=== PATIENT | male | born 1970 | race Hispanic/Latino ===

== ENCOUNTER 2019-02-11 20:09 | Emergency (ER) | payer SELFPAY ==
[~2019-02-11] VITALS: Ht 165.1 cm; Wt 80.0 kg
[~2019-02-11 20:09] MED LIST: FORTAMET1000 MG PO; GLYBURIDE MICRON3 MG PO; ZESTRIL10 M1 PO
[2019-02-11 21:08] LABS: HEMATOCRIT 39.5 % (39.0-50.0); HEMOGLOBIN 13.1 g/dl (14.0-18.0); IMMATURE GRANULOCYTES 0.3 % (0.0-5.0); MEAN CELL VOLUME 103.4 fL CALC (80.0-100.0); MEAN CORPUSCULAR HGB 34.3 pG CALC (26.0-32.0); MEAN CORPUSCULAR HGB CONC 33.2 g/L CALC (32.0-36.0); PLATELET COUNT 214 thou/uL (130-400); RED BLOOD COUNT 3.82 mill/uL (4.70-6.10); RED CELL DISTRI WIDTH 17.6 % (11.5-15.5)
[2019-02-11 21:23] LABS: MANUAL DIFFERENTIAL YES
[2019-02-11 21:44] LABS: INTERNATIONAL NORMALIZED RATIO 1.3 RATIO (0.7-1.3); PROTHROMBIN TIME 13.8 SECONDS (9.0-12.5)
[2019-02-11 21:48] LABS: AMYLASE 93 u/l (30-110); ANION GAP 13 (6-22 (CALC)); BUN 7 mg/dL (9-20); BUN/CREATININE RATIO 12 (12-20 (CALC)); CARBON DIOXIDE 25 mmol/l (22-30); CHLORIDE 106 mmol/l (95-108); CREATININE 0.6 mg/dL (0.7-1.3); ETHYL ALCOHOL 0 mg/dl (0-30); GFR > 60 ML/MIN (>=60 (CALC)); GFR FOR AFR.AMER. > 60 ML/MIN (>=60 (CALC)); LIPASE 380 u/l (23-300); POTASSIUM 4.2 mmol/l (3.5-5.1); SGOT/AST 83 u/l (17-59); SODIUM 140 mmol/l (137-146); TOTAL PROTEIN 7.2 g/dL (6.3-8.2)
[2019-02-11 21:55] LABS: ALBUMIN 2.8 g/dL (3.2-5.0); ALKALINE PHOSPHATASE 160 u/l (38-126); BILIRUBIN, TOTAL 2.7 mg/dL (0.0-1.4)
[2019-02-11 22:00] LABS: MYOGLOBIN 27 ng/mL (0 - 121)
[2019-02-11 22:26] LABS: URINE BLOOD DIPSTICK NEGATIVE (NEGATIVE); URINE COLOR YELLOW; URINE GLUCOSE - DIPSTICK 100 mg/dL (NEGATIVE); URINE KETONE TRACE mg/dL (NEGATIVE); URINE LEUK ESTERASE NEGATIVE (NEGATIVE); URINE NITRITE - DIPSTICK NEGATIVE (Negative); URINE PROTEIN - DIPSTICK NEGATIVE (NEG-TRACE); URINE SPECIFIC GRAVITY 1.025; URINE UROBILINOGEN - DIPSTICK >=8.0 E.U./dL (0.2)
[2019-02-11 22:32] LABS: URINE BILIRUBIN - DIPSTICK SMALL (NEGATIVE)
[2019-02-11 22:36] LABS: COCAINE NEGATIVE (NEGATIVE); METHADONE NEGATIVE (NEGATIVE); TETRAHYDROCANNABIONOL NEGATIVE (NEGATIVE)
[2019-02-11 22:37] LABS: BARBITURATES NEGATIVE (NEGATIVE); OXCYCODONE NEGATIVE (NEGATIVE); TRICYLIC ANTIDEPRESSANTS NEGATIVE (NEGATIVE)
[2019-02-12 00:03] VITALS: BP 140/79
== END 2019-02-12 00:14 | disposition home or self-care (01) | DRG 434 ==
LOC: ED 20:09
PROVIDERS: Emergency Medicine
DX: K70.31 Alcoholic cirrhosis of liver with ascites (principal); R41.82 Altered mental status, unspecified; R53.1 Weakness; R50.9 Fever, unspecified

== ENCOUNTER 2019-02-19 09:23 | Observation (INO) | payer OTHER ==
[~2019-02-19] VITALS: Ht 165.1 cm; Wt 66.0 kg
--- NOTE | 2019-02-19 09:45 | NUR ---
PT AMB TO ROOM WITH CRUTCHES WITH FAMILY
[2019-02-19 10:47] LABS: HEMOGLOBIN 13.3 g/dl (14.0-18.0); IMMATURE GRANULOCYTES 0.3 % (0.0-5.0); MEAN CELL VOLUME 106.5 fL CALC (80.0-100.0); MEAN CORPUSCULAR HGB 34.5 pG CALC (26.0-32.0); MEAN CORPUSCULAR HGB CONC 32.4 g/L CALC (32.0-36.0); NEUT# 4.92 thou/uL (1.82-7.42); RED BLOOD COUNT 3.85 mill/uL (4.70-6.10); RED CELL DISTRI WIDTH 15.5 % (11.5-15.5)
--- NOTE | 2019-02-19 11:02 | NUR ---
PT NOW WITH IV ESTABLISHED, BLOOD DRAWN, SEEN BY EDNi. VICKY.
[2019-02-19 11:03] LABS: ALKALINE PHOSPHATASE 115 u/l (38-126); ANION GAP 11 (6-22 (CALC)); BUN 9 mg/dL (9-20); BUN/CREATININE RATIO 18 (12-20 (CALC)); CARBON DIOXIDE 26 mmol/l (22-30); CHLORIDE 107 mmol/l (95-108); CREATININE 0.5 mg/dL (0.7-1.3); GFR > 60 ML/MIN (>=60 (CALC)); GFR FOR AFR.AMER. > 60 ML/MIN (>=60 (CALC)); LIPASE 287 u/l (23-300); SGOT/AST 63 u/l (17-59); SODIUM 138 mmol/l (137-146); TOTAL PROTEIN 7.5 g/dL (6.3-8.2)
[2019-02-19 11:16] LABS: URINE BILIRUBIN - DIPSTICK NEGATIVE (NEGATIVE); URINE BLOOD DIPSTICK NEGATIVE (NEGATIVE); URINE COLOR YELLOW; URINE GLUCOSE - DIPSTICK NEGATIVE (NEGATIVE); URINE KETONE NEGATIVE (NEGATIVE); URINE LEUK ESTERASE NEGATIVE (NEGATIVE); URINE NITRITE - DIPSTICK NEGATIVE (Negative); URINE PH 5.5 (4.5-8.0); URINE PROTEIN - DIPSTICK NEGATIVE (NEG-TRACE)
--- NOTE | 2019-02-19 13:16 | NUR ---
PT TO PROCEDURES FOR PARACENTESIS. FAMILY REMAINS IN ROOM.
--- NOTE | 2019-02-19 13:47 | NUR ---
PT RETURNS FROM PARACENTESIS, 2850 OUT.
--- NOTE | 2019-02-19 14:40 | NUR ---
DIET ORDER PLACED, AWAITING MEAL TO ARRIVE FROM [place].
[2019-02-19] MEDS ORDERED: BLOOD PRESSURE MED (14:43)
[2019-02-19] MEDS ORDERED: DIABETES MEDICINE (14:44)
[2019-02-19] MEDS ORDERED: [UNRECOGNIZED DRUG - OTHER] (14:44)
--- NOTE | 2019-02-19 15:19 | NUR ---
REPORT CALLED TO [facility], TO FLOOR SOON.
[2019-02-19 15:25] VITALS: BP 110/63
--- NOTE | 2019-02-19 15:29 | NUR ---
PT TAKE TO ROOM 274 WITHOUT INICIDENT.
--- NOTE | 2019-02-19 16:30 | NUR ---
PT ARRIVED TO MED/SURG ROOM 274 VIA STRETCHER IN STABLE CONDITION ACCOMPANIED BY GERALD KOLB;PT AMBULATED WITH A STEADY GAIT TO STANDING SCALE AND BEDSIDE;WT AND VS OBTAINED BY TAWNY GRIFFIN;PT A&O X3, EQUATORIAL GUINEAN SPEAKING ONLY. TRANSLATION PROVIDED BY GERALD IBANEZ;PT DENIES ANY CURRENT PAIN OR DISCOMFORTS,PAIN SCALE AND REPORTING EDUCATED;RESPIRATIONS EVEN AND UNLABORED ON RA,CLEAR LUNG SOUNDS;ABDOMEN SOFT ON PALPATION AND ACTIVE IN ALL 4 QUADRANTS,LAST BM 02/19/19;STRONG PEDAL PULSES;#20G TO LAC FLUSHED AND PATENT,SITE APPEARS HEALTHY;400CC OF CLEAR/YELLOW URINE EMPTIED FROM URINAL;PT DENIES ANY ADDITIONAL NEEDS AT THIS TIME AND IS ENCOURAGED TO CALL FOR ASSISTANCE IF NEEDED;CALL LIGHT IN REACH;WILL CONTINUE TO MONITOR
--- NOTE | 2019-02-19 19:19 | NUR ---
PATIENT RESTING IN BED WITH MULTIPLE FAMILY MEMBERS AT BEDSIDE. PATIENT IS MOSTLY GERMAN SPEAKING. DAUGHTER USED FOR TRANLATION. PATIENT DENIES ANY PAIN OR DISCOMFORT AT THIS TIME. PATIENT POST-PARACENTESIS FROM TODAY. SMALL DRESSING TO RIGHT ABD CDI AT THIS TIME. ABD IS SOFT WITH ACTIVE BS. LAST BM WAS TODAY. DENIES ANY DIFFICULTY WITH URINATION. LUNGS ARE CLEAR. HR IS REGULAR. NO PERIPHERAL EDEMA NOTED WITH PULSES PALPABLE. SAFETY PRECAUTIONS REINFORCED. CALL LIGHT IN REACH. WILL CONT TO MONITOR.
[2019-02-19 19:54] VITALS: BP 100/61
[2019-02-19 23:55] VITALS: BP 86/55
--- NOTE | 2019-02-20 00:19 | NUR ---
PATIENT RESTING IN BED-AWAKE WITH NO COMPLAINTS AT THIS TIME. ZOSYN HUNG AND INFUSING VIA LEFT AC SITE. SITE REMAINS HEALTHY AT THIS TIME. CALL LIGHT IN REACH. WILL CONT TO MONITOR.
--- NOTE | 2019-02-20 04:08 | NUR ---
APPEARS SLEEPING AT THIS TIME-EYES CLOSED. RESP ARE EVEN AND UNLABORED. CALL LIGHT IN REACH. WILL CONT TO MONITOR.
[2019-02-20 04:14] VITALS: BP 98/53
[2019-02-20 05:04] LABS: HEMOGLOBIN 12.5 g/dl (14.0-18.0); IMMATURE GRANULOCYTES 0.1 % (0.0-5.0); MEAN CELL VOLUME 103.1 fL CALC (80.0-100.0); MEAN CORPUSCULAR HGB 34.8 pG CALC (26.0-32.0); MEAN CORPUSCULAR HGB CONC 33.8 g/L CALC (32.0-36.0); NEUT# 4.3 thou/uL (1.82-7.42); RED BLOOD COUNT 3.59 mill/uL (4.70-6.10); RED CELL DISTRI WIDTH 14.9 % (11.5-15.5)
[2019-02-20 05:29] LABS: ALBUMIN 2.1 g/dL (3.2-5.0); ALKALINE PHOSPHATASE 84 u/l (38-126); AMYLASE 55 u/l (30-110); ANION GAP 9 (6-22 (CALC)); BILIRUBIN, TOTAL 1.6 mg/dL (0.0-1.4); BUN 9 mg/dL (9-20); BUN/CREATININE RATIO 13 (12-20 (CALC)); CARBON DIOXIDE 25 mmol/l (22-30); CHLORIDE 109 mmol/l (95-108); CREATININE 0.6 mg/dL (0.7-1.3); GFR > 60 ML/MIN (>=60 (CALC)); GFR FOR AFR.AMER. > 60 ML/MIN (>=60 (CALC)); LIPASE 312 u/l (23-300); MAGNESIUM 1.7 mg/dL (1.6-2.3); POTASSIUM 3.9 mmol/l (3.5-5.1); SGOT/AST 44 u/l (17-59); SODIUM 139 mmol/l (137-146); TOTAL PROTEIN 5.7 g/dL (6.3-8.2)
--- NOTE | 2019-02-20 07:05 | NUR ---
PT REPORT RECIEVED FROM GERALD ESTEBAN. PT SLEEPING. NO S/S OF DISTRESS. CALL LIGHT IN REACH. WILL CONTINUE TO MONITOR.
[2019-02-20 08:35] VITALS: BP 97/70
--- NOTE | 2019-02-20 08:35 | NUR ---
PT A/O X3. SPEECH IS CLEAR. RESP EVEN AND UNLABORED. LUNG SOUNDS CLEAR. BOWEL SOUNDS ACTIVE X4. STRONG RADIAL AND PEDAL PULSES. #20 LAC SL. FLUSHED AND PATENT. SITE APPEARS HEALTHY. PT HAS A SMALL SKIN TEAR TO HIS RLE; PT STATES IT CAME FROM HIS BOOTS. PT DENIES ANY PAIN OR NEEDS. POC DISCUSSED; PT VERBALIZES UNDERSTANDING. SAFETY PRECAUTIONS IN PLACE. CALL LIGHT IN REACH. PT AMBULATING IN HALLS AND IN ROOM. WILL CONTINUE TO MONITOR.
--- NOTE | 2019-02-20 10:55 | NUR ---
DR. MILLARD IN TO SEE PT
[2019-02-20 11:08] VITALS: BP 113/73
--- NOTE | 2019-02-20 12:28 | NUR ---
PT AMBULATING IN HALLS. NO C/O PAIN OR NEEDS. WILL CONTINUE TO MONITOR.
[2019-02-20 15:00] VITALS: BP 99/63
--- NOTE | 2019-02-20 15:31 | NUR ---
MIRTA CALLED REGARDING [facility] FOR PT. SHE STATES SHE WILL BE UP TO TALK W/ PT.
--- NOTE | 2019-02-20 15:45 | NUR ---
PT SITTING IN RECLINER. NO C/O PAIN OR NEEDS. CALL LIGHT IN REACH. WILL CONTINUE TO MONITOR.
--- NOTE | 2019-02-20 19:30 | NUR ---
PATIENT RESTING IN BED-AWAKE ALERT AND ORIENTEDX3. [place] SPEAKING ONLY. MULTIPLE VISITORS AT BEDSIDE. PATIENT WITH NO COMPLAINTS AT THIS TIME. SALINE LOCK INTACT TO LEFT AC SITE. SITE IS HEALTHY AT THIS TIME. SAFETY PRECAUTIONS REINFORCED. CALL LIGHT IN REACH. WILL CONT TO MONITOR.
[2019-02-20 19:33] VITALS: BP 110/75
--- NOTE | 2019-02-20 23:36 | NUR ---
PATIENT RESTING IN BED-NO COMPLAINTS AT THIS TIME, IV SITE TO LEFT AC INTACT AND ZOSYN HUNG AND INFUSING ORDERED. PATIENT OFFERED LIBRIUM TO HELP REST BUT PATIENT DECLINED AT THIS TIME. SAFETY PRECAUTIONS REINFORCED. CALL LIGHT IN REACH. WILL CONT TO MONITOR.
--- NOTE | 2019-02-21 00:43 | NUR ---
PATIENT RESTING IN BED-C/O PAIN AT LEFT AC IV SITE-SITE IS RED AND PAINFUL. IV SITE D/C'ED AND NEW IV SITE STARTED TO RIGHT UPPER FOREARM. GOOD BLOOD RETURN. PATIENT CONT TO REFUSE ANY LIBRIUM AT THIS TIME. STATES THAT HE WANTS TO GO HOME IN THE MORNING. CALL LIGHT IN REACH. WILL CONT TO MONITOR.
[2019-02-21 03:56] VITALS: BP 90/56
--- NOTE | 2019-02-21 05:21 | NUR ---
APPEARS SLEEPING AT THIS TIME WITH EYES CLOSED. RESP ARE EVEN AND UNLABORED. CALL LIGHT IN REACH. WILL CONT TO MONITOR.
[2019-02-21 08:44] VITALS: BP 93/69
--- NOTE | 2019-02-21 08:49 | NUR ---
PT AMBULATING THE HALLS; ASSESSMENT COMPLETED; RESP EVEN AND UNLABORED; A/O; #22G RFA, FLUSHED WELL, SITE APPEARS HEALTHY; MEDICATED PER EMAR; C/O OF NO PAIN; SAFETY PRECAUTION REINFORCE;
--- NOTE | 2019-02-21 10:50 | NUR ---
PT SITTING UP IN CHAIR, FAMILIES AT BEDSIDE;
--- NOTE | 2019-02-21 11:32 | NUR ---
DR BAUER AT BEDSIDE TO DISCUSS POC
--- NOTE | 2019-02-21 11:41 | NUR ---
PT SITTING UP IN CHAIR READY TO EAT LUNCH; FAMILIES AT BEDSIDE; STOCK REPAIRER IN ROOM; ZOSYN INFUSING; IV SITE APPEARS HEALTHY.
[2019-02-21] MEDS ORDERED: PROTONIX40 M2 PO (12:26)
[2019-02-21] MEDS ORDERED: CIPROFLOXACN500 MG PO (12:26)
[2019-02-21] MEDS ORDERED: SPIRONOLACT25 MG PO (12:27)
[2019-02-21] MEDS ORDERED: INDERAL10 M1 PO (12:29)
--- NOTE | 2019-02-21 13:08 | NUR ---
Discharge instructions given. Patient verbalizes understanding of same. Discharged in stable condition via Ambulatory to Home with family. All belongings sent with pt. IV REMOVED CATH INTACT; PT REMINDED TO [facility] OFF[facility] MEDICATIONS AT [facility]; VERBALIZE UNDERSTANDING.
== END 2019-02-21 13:22 | disposition home or self-care (01) ==
LOC: ED 09:23 → ED-I 14:25 → ED 14:42 → MS2 14:43
PROVIDERS: Family Medicine; ADMIT Internal Medicine Nephrology; ATTEND Internal Medicine Nephrology
DX: R10.32 Left lower quadrant pain (principal); R10.12 Left upper quadrant pain; K70.31 Alcoholic cirrhosis of liver with ascites; K70.11 Alcoholic hepatitis with ascites; N49.2 Inflammatory disorders of scrotum; K76.6 Portal hypertension; E11.9 Type 2 diabetes mellitus without complications; F32.9 Major depressive disorder, single episode, unspecified; D64.9 Anemia, unspecified; E88.09 Other disorders of plasma-protein metabolism, not elsewhere classified; E46 Unspecified protein-calorie malnutrition; Z68.24 Body mass index [BMI] 24.0-24.9, adult; Z53.20 Procedure and treatment not carried out because of patient's decision for unspecified reasons
CPT/HCPCS: G0378; Q9967

== ENCOUNTER 2019-03-08 09:44 | Emergency (ER) | payer OTHER ==
[~2019-03-08] VITALS: Ht 165.1 cm; Wt 66.0 kg
[~2019-03-08 09:44] MED LIST changes: +BLOOD PRESSURE MED; +CIPROFLOXACN500 MG PO; +DIABETES MEDICINE; +INDERAL10 M1 PO; +PROTONIX40 M2 PO; +SPIRONOLACT25 MG PO; +[UNRECOGNIZED DRUG - OTHER]
[2019-03-08 10:20] LABS: HEMATOCRIT 41.1 % (39.0-50.0); HEMOGLOBIN 13.7 g/dl (14.0-18.0); IMMATURE GRANULOCYTES 0.3 % (0.0-5.0); MEAN CELL VOLUME 100.5 fL CALC (80.0-100.0); MEAN CORPUSCULAR HGB 33.5 pG CALC (26.0-32.0); MEAN CORPUSCULAR HGB CONC 33.3 g/L CALC (32.0-36.0); NEUT# 3.76 thou/uL (1.82-7.42); RED BLOOD COUNT 4.09 mill/uL (4.70-6.10); RED CELL DISTRI WIDTH 13.4 % (11.5-15.5)
[2019-03-08 10:47] LABS: ALKALINE PHOSPHATASE 78 u/l (38-126); ANION GAP 10 (6-22 (CALC)); BILIRUBIN, TOTAL 1.6 mg/dL (0.0-1.4); BUN 6 mg/dL (9-20); BUN/CREATININE RATIO 11 (12-20 (CALC)); CARBON DIOXIDE 26 mmol/l (22-30); CHLORIDE 108 mmol/l (95-108); CREATININE 0.6 mg/dL (0.7-1.3); GFR > 60 ML/MIN (>=60 (CALC)); GFR FOR AFR.AMER. > 60 ML/MIN (>=60 (CALC)); LIPASE 62 u/l (23-300); POTASSIUM 4.4 mmol/l (3.5-5.1); SGOT/AST 37 u/l (17-59); SODIUM 139 mmol/l (137-146)
[2019-03-08 10:58] LABS: ALBUMIN 2.8 g/dL (3.2-5.0); TOTAL PROTEIN 6.9 g/dL (6.3-8.2)
[2019-03-08 12:22] LABS: URINE BILIRUBIN - DIPSTICK SMALL (NEGATIVE); URINE BLOOD DIPSTICK NEGATIVE (NEGATIVE); URINE COLOR YELLOW; URINE GLUCOSE - DIPSTICK NEGATIVE (NEGATIVE); URINE KETONE NEGATIVE (NEGATIVE); URINE LEUK ESTERASE NEGATIVE (NEGATIVE); URINE NITRITE - DIPSTICK NEGATIVE (Negative); URINE PROTEIN - DIPSTICK NEGATIVE (NEG-TRACE); URINE SPECIFIC GRAVITY 1.015
[2019-03-08 14:22] VITALS: BP 112/60
== END 2019-03-08 14:28 | disposition home or self-care (01) ==
LOC: ED 09:44
PROVIDERS: Family Medicine
DX: K52.9 Noninfective gastroenteritis and colitis, unspecified (principal); E11.9 Type 2 diabetes mellitus without complications; K74.60 Unspecified cirrhosis of liver; R53.1 Weakness; R42 Dizziness and giddiness; R10.11 Right upper quadrant pain

== ENCOUNTER 2019-08-27 10:56 | Emergency (ER) | payer SELFPAY ==
[~2019-08-27] VITALS: Ht 165.1 cm; Wt 65.4 kg
[2019-08-27 13:16] LABS: HEMATOCRIT 41.4 % (39.0-50.0); HEMOGLOBIN 13.7 g/dl (14.0-18.0); IMMATURE GRANULOCYTES 0.3 % (0.0-5.0); MEAN CORPUSCULAR HGB 30.6 pG CALC (26.0-32.0); MEAN CORPUSCULAR HGB CONC 33.1 g/L CALC (32.0-36.0); NEUT# 1.54 thou/uL (1.82-7.42); RED BLOOD COUNT 4.47 mill/uL (4.70-6.10); RED CELL DISTRI WIDTH 12.6 % (11.5-15.5)
[2019-08-27 13:27] LABS: MEAN CELL VOLUME 92.6 fL CALC (80.0-100.0)
[2019-08-27 13:30] LABS: ANION GAP 16 (6-22 (CALC)); BUN 14 mg/dL (9-20); BUN/CREATININE RATIO 26 (12-20 (CALC)); CARBON DIOXIDE 24 mmol/l (22-30); CHLORIDE 99 mmol/l (95-108); CREATININE 0.5 mg/dL (0.7-1.3); GFR > 60 ML/MIN (>=60 (CALC)); GFR FOR AFR.AMER. > 60 ML/MIN (>=60 (CALC)); POTASSIUM 4.1 mmol/l (3.5-5.1); SODIUM 135 mmol/l (137-146)
[2019-08-27 13:34] LABS: ALBUMIN 4.3 g/dL (3.2-5.0); ALKALINE PHOSPHATASE 118 u/l (38-126); BILIRUBIN, TOTAL 0.6 mg/dL (0.0-1.4); SGOT/AST 66 u/l (17-59); TOTAL PROTEIN 8.6 g/dL (6.3-8.2)
[2019-08-27 14:28] VITALS: BP 117/72
== END 2019-08-27 14:33 | disposition home or self-care (01) | DRG 74 ==
LOC: ED 10:56
PROVIDERS: Family Medicine
DX: E11.42 Type 2 diabetes mellitus with diabetic polyneuropathy (principal)

== ENCOUNTER 2022-01-14 12:37 | Inpatient (IN) | payer MEDICAID ==
[~2022-01-14] VITALS: Ht 165.1 cm; Wt 63.0 kg
[2022-01-14] VITALS (44 sets, daily range): BP systolic 128–178; BP diastolic 70–120
[2022-01-14 13:29] LABS: MEAN CORPUSCULAR HGB 28.3 pG CALC (26.0-32.0); MEAN CORPUSCULAR HGB CONC 33.2 g/dL CAL (32.0-36.0); NEUT# 21.02 thou/uL (1.82-7.42); RED BLOOD COUNT 3.78 mill/uL (4.70-6.10); RED CELL DISTRI WIDTH 13.1 % (11.5-15.5)
[2022-01-14 13:36] LABS: HEMATOCRIT 32.2 % (39.0-50.0); HEMOGLOBIN 10.7 g/dl (14.0-18.0); MEAN CELL VOLUME 85.2 fL CALC (80.0-100.0)
[2022-01-14 13:47] LABS: URINE BILIRUBIN - DIPSTICK NEGATIVE (NEGATIVE); URINE BLOOD DIPSTICK LARGE (NEGATIVE); URINE COLOR YELLOW; URINE GLUCOSE - DIPSTICK >=1000 mg/dL (NEGATIVE); URINE KETONE 40 mg/dL (NEGATIVE); URINE LEUK ESTERASE TRACE (NEGATIVE); URINE PROTEIN - DIPSTICK 30 mg/dL (NEG-TRACE); URINE SPECIFIC GRAVITY <=1.005; URINE UROBILINOGEN - DIPSTICK 0.2 E.U./dL (0.2)
[2022-01-14 13:50] LABS: URINE NITRITE - DIPSTICK NEGATIVE (Negative)
[2022-01-14 13:51] LABS: URINE BACTERIA FEW hpf; URINE EPITHELIAL CELLS FEW EPI/hpf (0-FEW); URINE RBC 25-50 RBC/hpf (0-5); URINE WBC 0-2 WBC/hpf (0-5)
[2022-01-14 13:51] LABS: INTERNATIONAL NORMALIZED RATIO 1.5 RATIO (0.7-1.3); PROTHROMBIN TIME 15.4 SECONDS (9.0-12.5)
[2022-01-14 14:23] LABS: BUN 15 mg/dL (9-20); BUN/CREATININE RATIO 14 (12-20 (CALC)); CREATININE 1.1 mg/dL (0.7-1.3); GFR > 60 ML/MIN (>=60 (CALC)); GFR FOR AFR.AMER. > 60 ML/MIN (>=60 (CALC)); LIPASE 617 u/l (23-300); POTASSIUM 4.2 mmol/l (3.5-5.1); SGOT/AST 38 u/l (17-59); TOTAL PROTEIN 7.5 g/dL (6.3-8.2)
[2022-01-14 14:37] LABS: ALKALINE PHOSPHATASE 338 u/l (38-126); ANION GAP 25 (6-22 (CALC)); BILIRUBIN, TOTAL 0.9 mg/dL (0.0-1.4); CARBON DIOXIDE 12 mmol/l (22-30); CHLORIDE 74 mmol/l (95-108)
[2022-01-14 14:38] LABS: SODIUM 107 mmol/l (137-146)
[2022-01-14 16:40] LABS: BUN 14 mg/dL (9-20); BUN/CREATININE RATIO 17 (12-20 (CALC)); CHLORIDE 82 mmol/l (95-108); CREATININE 0.8 mg/dL (0.7-1.3); GFR > 60 ML/MIN (>=60 (CALC)); GFR FOR AFR.AMER. > 60 ML/MIN (>=60 (CALC)); POTASSIUM 3.6 mmol/l (3.5-5.1)
[2022-01-14 16:49] LABS: ANION GAP 16 (6-22 (CALC)); CARBON DIOXIDE 21 mmol/l (22-30); SODIUM 115 mmol/l (137-146)
[2022-01-14 20:21] LABS: BUN 12 mg/dL (9-20); BUN/CREATININE RATIO 15 (12-20 (CALC)); CARBON DIOXIDE 24 mmol/l (22-30); CHLORIDE 89 mmol/l (95-108); CREATININE 0.8 mg/dL (0.7-1.3); GFR > 60 ML/MIN (>=60 (CALC)); GFR FOR AFR.AMER. > 60 ML/MIN (>=60 (CALC)); POTASSIUM 3.2 mmol/l (3.5-5.1)
[2022-01-14 20:27] LABS: ANION GAP 9 (6-22 (CALC))
[2022-01-14 20:28] LABS: SODIUM 119 mmol/l (137-146)
[2022-01-15] VITALS (63 sets, daily range): BP systolic 120–168; BP diastolic 71–121
[2022-01-15 05:15] LABS: HEMATOCRIT 30.5 % (39.0-50.0); HEMOGLOBIN 10.4 g/dl (14.0-18.0); MEAN CELL VOLUME 83.3 fL CALC (80.0-100.0); MEAN CORPUSCULAR HGB 28.4 pG CALC (26.0-32.0); MEAN CORPUSCULAR HGB CONC 34.1 g/dL CAL (32.0-36.0); RED BLOOD COUNT 3.66 mill/uL (4.70-6.10); RED CELL DISTRI WIDTH 12.9 % (11.5-15.5)
[2022-01-15 05:43] LABS: ALKALINE PHOSPHATASE 241 u/l (38-126); BILIRUBIN, TOTAL 0.9 mg/dL (0.0-1.4); BUN 9 mg/dL (9-20); BUN/CREATININE RATIO 13 (12-20 (CALC)); CARBON DIOXIDE 25 mmol/l (22-30); CHLORIDE 95 mmol/l (95-108); CREATININE 0.7 mg/dL (0.7-1.3); GFR > 60 ML/MIN (>=60 (CALC)); GFR FOR AFR.AMER. > 60 ML/MIN (>=60 (CALC)); MAGNESIUM 1.7 mg/dL (1.6-2.3); POTASSIUM 3.2 mmol/l (3.5-5.1); SGOT/AST 36 u/l (17-59); TOTAL PROTEIN 6.3 g/dL (6.3-8.2)
[2022-01-15 05:44] LABS: ALBUMIN 2.3 g/dL (3.2-5.0); ANION GAP 8 (6-22 (CALC)); SODIUM 125 mmol/l (137-146)
[2022-01-16] VITALS (23 sets, daily range): BP systolic 116–154; BP diastolic 65–101
[2022-01-16 04:56] LABS: HEMATOCRIT 31.2 % (39.0-50.0); HEMOGLOBIN 10.6 g/dl (14.0-18.0); MEAN CELL VOLUME 83.9 fL CALC (80.0-100.0); MEAN CORPUSCULAR HGB 28.5 pG CALC (26.0-32.0); RED BLOOD COUNT 3.72 mill/uL (4.70-6.10); RED CELL DISTRI WIDTH 13.4 % (11.5-15.5)
[2022-01-16 05:07] LABS: ALBUMIN 2.3 g/dL (3.2-5.0); ALKALINE PHOSPHATASE 254 u/l (38-126); ANION GAP 8 (6-22 (CALC)); BILIRUBIN, TOTAL 0.9 mg/dL (0.0-1.4); BUN 11 mg/dL (9-20); BUN/CREATININE RATIO 17 (12-20 (CALC)); CARBON DIOXIDE 26 mmol/l (22-30); CHLORIDE 98 mmol/l (95-108); CREATININE 0.6 mg/dL (0.7-1.3); GFR > 60 ML/MIN (>=60 (CALC)); GFR FOR AFR.AMER. > 60 ML/MIN (>=60 (CALC)); MAGNESIUM 1.8 mg/dL (1.6-2.3); POTASSIUM 2.9 mmol/l (3.5-5.1); SODIUM 128 mmol/l (137-146); TOTAL PROTEIN 6.4 g/dL (6.3-8.2)
[2022-01-16 05:13] LABS: SGOT/AST 98 u/l (17-59)
[2022-01-17] VITALS (16 sets, daily range): BP systolic 115–156; BP diastolic 74–97
[2022-01-17 05:30] LABS: HEMATOCRIT 31.2 % (39.0-50.0); HEMOGLOBIN 10.4 g/dl (14.0-18.0); IMMATURE GRANULOCYTES 1.3 % (0.0-5.0); MEAN CORPUSCULAR HGB 28.3 pG CALC (26.0-32.0); MEAN CORPUSCULAR HGB CONC 33.3 g/dL CAL (32.0-36.0); NEUT# 8.64 thou/uL (1.82-7.42); RED BLOOD COUNT 3.67 mill/uL (4.70-6.10); RED CELL DISTRI WIDTH 13.8 % (11.5-15.5)
[2022-01-17 05:42] LABS: ANION GAP 10 (6-22 (CALC)); BUN 12 mg/dL (9-20); BUN/CREATININE RATIO 20 (12-20 (CALC)); CARBON DIOXIDE 24 mmol/l (22-30); CHLORIDE 97 mmol/l (95-108); CREATININE 0.6 mg/dL (0.7-1.3); GFR > 60 ML/MIN (>=60 (CALC)); GFR FOR AFR.AMER. > 60 ML/MIN (>=60 (CALC)); MAGNESIUM 1.7 mg/dL (1.6-2.3); POTASSIUM 3.3 mmol/l (3.5-5.1); SODIUM 127 mmol/l (137-146)
[2022-01-18 04:30] VITALS: BP 134/89
[2022-01-18 05:24] LABS: HEMATOCRIT 32.1 % (39.0-50.0); HEMOGLOBIN 10.6 g/dl (14.0-18.0); IMMATURE GRANULOCYTES 0.6 % (0.0-5.0); MEAN CELL VOLUME 86.3 fL CALC (80.0-100.0); MEAN CORPUSCULAR HGB 28.5 pG CALC (26.0-32.0); NEUT# 7.33 thou/uL (1.82-7.42); RED BLOOD COUNT 3.72 mill/uL (4.70-6.10); RED CELL DISTRI WIDTH 14.2 % (11.5-15.5)
[2022-01-18 05:50] LABS: ANION GAP 8 (6-22 (CALC)); BUN 12 mg/dL (9-20); BUN/CREATININE RATIO 20 (12-20 (CALC)); CARBON DIOXIDE 25 mmol/l (22-30); CHLORIDE 99 mmol/l (95-108); CREATININE 0.6 mg/dL (0.7-1.3); GFR > 60 ML/MIN (>=60 (CALC)); GFR FOR AFR.AMER. > 60 ML/MIN (>=60 (CALC)); MAGNESIUM 1.8 mg/dL (1.6-2.3); POTASSIUM 3.4 mmol/l (3.5-5.1); SODIUM 129 mmol/l (137-146)
[2022-01-18 08:00] VITALS: BP 130/100
[2022-01-18 10:49] VITALS: BP 127/84
[2022-01-18 14:14] VITALS: BP 134/86
[2022-01-18 19:37] VITALS: BP 141/85
[2022-01-18 22:39] VITALS: BP 145/86
== END 2022-01-19 | DRG 638 ==
LOC: ED 12:37 → ED-I 15:20 → ICU 15:49 → MS2 15:49 → ED 16:56 → ED-I 16:56 → MS2 01-16 20:07
PROVIDERS: Nurse Practitioner; ADMIT Internal Medicine; ATTEND Internal Medicine
DX: E11.10 Type 2 diabetes mellitus with ketoacidosis without coma (principal); E87.1 Hypo-osmolality and hyponatremia; F10.239 Alcohol dependence with withdrawal, unspecified; R78.81 Bacteremia; I10 Essential (primary) hypertension; K70.30 Alcoholic cirrhosis of liver without ascites; D72.829 Elevated white blood cell count, unspecified; E11.40 Type 2 diabetes mellitus with diabetic neuropathy, unspecified; F32.A Depression, unspecified; R31.9 Hematuria, unspecified; Z91.19 Patient's noncompliance with other medical treatment and regimen; Y90.0 Blood alcohol level of less than 20 mg/100 ml; Z20.822 Contact with and (suspected) exposure to COVID-19
CPT/HCPCS: Q9967

== ENCOUNTER 2022-01-24 10:45 | Inpatient (IN) | payer MEDICAID ==
[~2022-01-24] VITALS: Ht 165.1 cm; Wt 59.9 kg
[2022-01-24 12:50] VITALS: BP 130/74
[2022-01-24 13:15] VITALS: BP 125/76
[2022-01-24 14:27] VITALS: BP 130/74
[2022-01-24 16:09] LABS: HEMATOCRIT 29.8 % (39.0-50.0); HEMOGLOBIN 9.4 g/dl (14.0-18.0); MEAN CELL VOLUME 89.8 fL CALC (80.0-100.0); MEAN CORPUSCULAR HGB 28.3 pG CALC (26.0-32.0); MEAN CORPUSCULAR HGB CONC 31.5 g/dL CAL (32.0-36.0); RED BLOOD COUNT 3.32 mill/uL (4.70-6.10); RED CELL DISTRI WIDTH 14.3 % (11.5-15.5)
[2022-01-24 16:24] LABS: ALBUMIN 2.5 g/dL (3.2-5.0); ALKALINE PHOSPHATASE 259 u/l (38-126); ANION GAP 11 (6-22 (CALC)); BILIRUBIN, TOTAL 0.3 mg/dL (0.0-1.4); BUN 10 mg/dL (9-20); BUN/CREATININE RATIO 13 (12-20 (CALC)); CARBON DIOXIDE 30 mmol/l (22-30); CHLORIDE 99 mmol/l (95-108); CREATININE 0.7 mg/dL (0.7-1.3); GFR FOR AFR.AMER. > 60 ML/MIN (>=60 (CALC)); GFR OTHER RACES > 60 ML/MIN (>=60 (CALC)); POTASSIUM 3.7 mmol/l (3.5-5.1); SGOT/AST 32 u/l (17-59); SODIUM 136 mmol/l (137-146); TOTAL PROTEIN 6.7 g/dL (6.3-8.2)
[2022-01-24 16:30] VITALS: BP 130/74
[2022-01-24 18:45] VITALS: BP 111/64
[2022-01-25 03:52] VITALS: BP 141/91
[2022-01-25 05:50] LABS: HEMATOCRIT 27.5 % (39.0-50.0); HEMOGLOBIN 8.7 g/dl (14.0-18.0); IMMATURE GRANULOCYTES 0.5 % (0.0-5.0); MEAN CELL VOLUME 88.4 fL CALC (80.0-100.0); MEAN CORPUSCULAR HGB CONC 31.6 g/dL CAL (32.0-36.0); NEUT# 4.64 thou/uL (1.82-7.42); RED BLOOD COUNT 3.11 mill/uL (4.70-6.10); RED CELL DISTRI WIDTH 14.1 % (11.5-15.5)
[2022-01-25 06:07] LABS: ALBUMIN 2.3 g/dL (3.2-5.0); ALKALINE PHOSPHATASE 234 u/l (38-126); ANION GAP 10 (6-22 (CALC)); BILIRUBIN, TOTAL 0.3 mg/dL (0.0-1.4); BUN 7 mg/dL (9-20); BUN/CREATININE RATIO 11 (12-20 (CALC)); CARBON DIOXIDE 27 mmol/l (22-30); CHLORIDE 103 mmol/l (95-108); CREATININE 0.7 mg/dL (0.7-1.3); GFR FOR AFR.AMER. > 60 ML/MIN (>=60 (CALC)); GFR OTHER RACES > 60 ML/MIN (>=60 (CALC)); POTASSIUM 3.3 mmol/l (3.5-5.1); SGOT/AST 31 u/l (17-59); SODIUM 136 mmol/l (137-146); TOTAL PROTEIN 6.3 g/dL (6.3-8.2)
[2022-01-25 06:22] VITALS: BP 139/87
[2022-01-25 14:38] VITALS: BP 140/77
[2022-01-25 19:00] VITALS: BP 114/72
[2022-01-25 22:11] VITALS: BP 120/67
[2022-01-26 04:37] VITALS: BP 140/79
[2022-01-26 05:50] LABS: HEMATOCRIT 28.1 % (39.0-50.0); HEMOGLOBIN 8.8 g/dl (14.0-18.0); IMMATURE GRANULOCYTES 0.4 % (0.0-5.0); MEAN CELL VOLUME 88.4 fL CALC (80.0-100.0); MEAN CORPUSCULAR HGB 27.7 pG CALC (26.0-32.0); MEAN CORPUSCULAR HGB CONC 31.3 g/dL CAL (32.0-36.0); NEUT# 3.59 thou/uL (1.82-7.42); RED BLOOD COUNT 3.18 mill/uL (4.70-6.10); RED CELL DISTRI WIDTH 13.9 % (11.5-15.5)
[2022-01-26 06:16] LABS: ALBUMIN 2.3 g/dL (3.2-5.0); ALKALINE PHOSPHATASE 219 u/l (38-126); ANION GAP 11 (6-22 (CALC)); BUN 7 mg/dL (9-20); BUN/CREATININE RATIO 10 (12-20 (CALC)); CARBON DIOXIDE 24 mmol/l (22-30); CHLORIDE 104 mmol/l (95-108); CREATININE 0.7 mg/dL (0.7-1.3); GFR FOR AFR.AMER. > 60 ML/MIN (>=60 (CALC)); GFR OTHER RACES > 60 ML/MIN (>=60 (CALC)); MAGNESIUM 1.6 mg/dL (1.6-2.3); POTASSIUM 3.6 mmol/l (3.5-5.1); SGOT/AST 28 u/l (17-59); SODIUM 135 mmol/l (137-146); TOTAL PROTEIN 6.2 g/dL (6.3-8.2)
[2022-01-26 06:27] LABS: BILIRUBIN, TOTAL 0.1 mg/dL (0.0-1.4)
[2022-01-26 07:14] VITALS: BP 132/76
[2022-01-26 15:15] VITALS: BP 120/73
[2022-01-26 19:11] VITALS: BP 116/70
[2022-01-27 04:32] VITALS: BP 160/85
[2022-01-27 06:48] VITALS: BP 136/58
[2022-01-27 11:13] LABS: HEMATOCRIT 30.5 % (39.0-50.0); HEMOGLOBIN 9.2 g/dl (14.0-18.0); IMMATURE GRANULOCYTES 0.2 % (0.0-5.0); MEAN CELL VOLUME 89.4 fL CALC (80.0-100.0); MEAN CORPUSCULAR HGB CONC 30.2 g/dL CAL (32.0-36.0); NEUT# 4.06 thou/uL (1.82-7.42); RED BLOOD COUNT 3.41 mill/uL (4.70-6.10); RED CELL DISTRI WIDTH 14.1 % (11.5-15.5)
[2022-01-27 12:02] LABS: ALKALINE PHOSPHATASE 243 u/l (38-126); ANION GAP 10 (6-22 (CALC)); BUN 6 mg/dL (9-20); BUN/CREATININE RATIO 8 (12-20 (CALC)); CARBON DIOXIDE 27 mmol/l (22-30); CHLORIDE 105 mmol/l (95-108); CREATININE 0.8 mg/dL (0.7-1.3); GFR FOR AFR.AMER. > 60 ML/MIN (>=60 (CALC)); GFR OTHER RACES > 60 ML/MIN (>=60 (CALC)); MAGNESIUM 1.7 mg/dL (1.6-2.3); POTASSIUM 4.1 mmol/l (3.5-5.1); SODIUM 138 mmol/l (137-146)
[2022-01-27 12:06] LABS: ALBUMIN 2.8 g/dL (3.2-5.0); BILIRUBIN, TOTAL 0.3 mg/dL (0.0-1.4); SGOT/AST 66 u/l (17-59); TOTAL PROTEIN 7.5 g/dL (6.3-8.2)
[2022-01-27 14:25] VITALS: BP 140/84
[2022-01-27 18:39] VITALS: BP 130/73
[2022-01-28 04:47] VITALS: BP 130/70
[2022-01-28 06:12] LABS: HEMATOCRIT 25.9 % (39.0-50.0); HEMOGLOBIN 8.1 g/dl (14.0-18.0); IMMATURE GRANULOCYTES 0.4 % (0.0-5.0); MEAN CELL VOLUME 89.9 fL CALC (80.0-100.0); MEAN CORPUSCULAR HGB 28.1 pG CALC (26.0-32.0); MEAN CORPUSCULAR HGB CONC 31.3 g/dL CAL (32.0-36.0); NEUT# 3.3 thou/uL (1.82-7.42); RED BLOOD COUNT 2.88 mill/uL (4.70-6.10); RED CELL DISTRI WIDTH 14.1 % (11.5-15.5)
[2022-01-28 06:13] LABS: ALKALINE PHOSPHATASE 204 u/l (38-126); ANION GAP 10 (6-22 (CALC)); BUN 6 mg/dL (9-20); BUN/CREATININE RATIO 9 (12-20 (CALC)); CARBON DIOXIDE 25 mmol/l (22-30); CHLORIDE 106 mmol/l (95-108); CREATININE 0.6 mg/dL (0.7-1.3); GFR FOR AFR.AMER. > 60 ML/MIN (>=60 (CALC)); GFR OTHER RACES > 60 ML/MIN (>=60 (CALC)); MAGNESIUM 1.5 mg/dL (1.6-2.3); POTASSIUM 3.5 mmol/l (3.5-5.1); SGOT/AST 26 u/l (17-59); SODIUM 137 mmol/l (137-146)
[2022-01-28 06:19] LABS: ALBUMIN 2.2 g/dL (3.2-5.0); BILIRUBIN, TOTAL 0.1 mg/dL (0.0-1.4)
[2022-01-28 07:13] VITALS: BP 113/68
[2022-01-28] MEDS ORDERED: SERTRALINE25 MG PO (12:32)
[2022-01-28] MEDS ORDERED: LOPRESSOR 550 MG/TAB PO (12:32)
[2022-01-28] MEDS ORDERED: JANUVIA25 MG PO (12:34)
[2022-01-28] MEDS ORDERED: METFORMIN500 M2 PO (12:35)
[2022-01-28] MEDS ORDERED: [UNRECOGNIZED DRUG - SUPPLY] XX (12:36)
[2022-01-28] MEDS ORDERED: VANCOMYCIN IV (12:39)
[2022-01-28 14:36] VITALS: BP 138/80
[2022-01-28 18:50] VITALS: BP 123/73
== END 2022-01-28 22:39 | disposition home or self-care (01) | DRG 872 ==
LOC: MS2 10:45
PROVIDERS: Nurse Practitioner; ADMIT Hospitalist; ATTEND Hospitalist
PROC: 02HV33Z Insertion of Infusion Device into Superior Vena Cava, Percutaneous Approach (ICD-10-PCS; principal; 2022-01-27)
PROC: B548ZZA Ultrasonography of Superior Vena Cava, Guidance (ICD-10-PCS; 2022-01-27)
DX: A41.02 Sepsis due to Methicillin resistant Staphylococcus aureus (principal); N41.2 Abscess of prostate; K76.6 Portal hypertension; M25.471 Effusion, right ankle; E87.6 Hypokalemia; E11.65 Type 2 diabetes mellitus with hyperglycemia; F10.20 Alcohol dependence, uncomplicated; K70.30 Alcoholic cirrhosis of liver without ascites; F32.A Depression, unspecified
CPT/HCPCS: A9579; J3370; Q3014

== ENCOUNTER 2022-05-13 13:52 | Observation (INO) | payer MEDICAID ==
[~2022-05-13] VITALS: Ht 165.1 cm; Wt 75.0 kg
[~2022-05-13 13:52] MED LIST changes: +JANUVIA25 MG PO; +LOPRESSOR 550 MG/TAB PO; +METFORMIN500 M2 PO; +SERTRALINE25 MG PO; +VANCOMYCIN IV; +[UNRECOGNIZED DRUG - SUPPLY] XX
[2022-05-13 14:00] VITALS: BP 133/82
[2022-05-13 14:11] VITALS: BP 112/75
[2022-05-13 14:30] VITALS: BP 110/70
[2022-05-13 14:35] LABS: IMMATURE GRANULOCYTES 0.2 % (0.0-5.0); MEAN CORPUSCULAR HGB 23.5 pG CALC (26.0-32.0); MEAN CORPUSCULAR HGB CONC 30.6 g/dL CAL (32.0-36.0); NEUT# 10.63 thou/uL (1.82-7.42); RED BLOOD COUNT 4.6 mill/uL (4.70-6.10); RED CELL DISTRI WIDTH 14.7 % (11.5-15.5)
[2022-05-13 14:36] LABS: HEMATOCRIT 35.3 % (39.0-50.0); HEMOGLOBIN 10.8 g/dl (14.0-18.0); MEAN CELL VOLUME 76.7 fL CALC (80.0-100.0)
[2022-05-13 14:40] LABS: ALKALINE PHOSPHATASE 187 u/l (38-126); BUN 18 mg/dL (9-20); BUN/CREATININE RATIO 17 (12-20 (CALC)); CARBON DIOXIDE 27 mmol/l (22-30); CHLORIDE 98 mmol/l (95-108); GFR FOR AFR.AMER. > 60 ML/MIN (>=60 (CALC)); GFR OTHER RACES > 60 ML/MIN (>=60 (CALC)); SGOT/AST 29 u/l (17-59); SODIUM 137 mmol/l (137-146)
[2022-05-13 14:41] LABS: ALBUMIN 3.8 g/dL (3.2-5.0); ANION GAP 16 (6-22 (CALC)); BILIRUBIN, TOTAL 0.4 mg/dL (0.0-1.4); POTASSIUM 4.4 mmol/l (3.5-5.1); TOTAL PROTEIN 8.3 g/dL (6.3-8.2)
[2022-05-13] MEDS ORDERED: METFORMIN HCL500 M1 PO (14:42)
[2022-05-13 17:47] VITALS: BP 110/71
[2022-05-13 17:57] VITALS: BP 115/72
[2022-05-13 18:32] VITALS: BP 114/64
[2022-05-14] VITALS (8 sets, daily range): BP systolic 109–157; BP diastolic 62–81
[2022-05-14 05:32] LABS: HEMATOCRIT 31.5 % (39.0-50.0); HEMOGLOBIN 9.7 g/dl (14.0-18.0); IMMATURE GRANULOCYTES 0.4 % (0.0-5.0); MEAN CELL VOLUME 76.3 fL CALC (80.0-100.0); MEAN CORPUSCULAR HGB 23.5 pG CALC (26.0-32.0); MEAN CORPUSCULAR HGB CONC 30.8 g/dL CAL (32.0-36.0); NEUT# 11.27 thou/uL (1.82-7.42); RED BLOOD COUNT 4.13 mill/uL (4.70-6.10); RED CELL DISTRI WIDTH 14.7 % (11.5-15.5)
[2022-05-14 06:06] LABS: ANION GAP 14 (6-22 (CALC)); BUN 14 mg/dL (9-20); BUN/CREATININE RATIO 19 (12-20 (CALC)); CARBON DIOXIDE 25 mmol/l (22-30); CHLORIDE 103 mmol/l (95-108); CREATININE 0.8 mg/dL (0.7-1.3); GFR FOR AFR.AMER. > 60 ML/MIN (>=60 (CALC)); GFR OTHER RACES > 60 ML/MIN (>=60 (CALC)); POTASSIUM 4.6 mmol/l (3.5-5.1); SODIUM 137 mmol/l (137-146)
[2022-05-15 03:50] VITALS: BP 121/79
[2022-05-15 04:41] LABS: HEMATOCRIT 27.8 % (39.0-50.0); HEMOGLOBIN 8.7 g/dl (14.0-18.0); IMMATURE GRANULOCYTES 0.1 % (0.0-5.0); MEAN CORPUSCULAR HGB 23.8 pG CALC (26.0-32.0); MEAN CORPUSCULAR HGB CONC 31.3 g/dL CAL (32.0-36.0); NEUT# 5.14 thou/uL (1.82-7.42); RED BLOOD COUNT 3.66 mill/uL (4.70-6.10); RED CELL DISTRI WIDTH 14.6 % (11.5-15.5)
[2022-05-15 05:03] LABS: CARBON DIOXIDE 26 mmol/l (22-30); CREATININE 0.7 mg/dL (0.7-1.3); GFR FOR AFR.AMER. > 60 ML/MIN (>=60 (CALC)); GFR OTHER RACES > 60 ML/MIN (>=60 (CALC))
[2022-05-15 05:19] LABS: ALKALINE PHOSPHATASE 135 u/l (38-126); ANION GAP 12 (6-22 (CALC)); BUN 14 mg/dL (9-20); BUN/CREATININE RATIO 20 (12-20 (CALC)); CHLORIDE 105 mmol/l (95-108); POTASSIUM 3.8 mmol/l (3.5-5.1); SGOT/AST 18 u/l (17-59); SODIUM 139 mmol/l (137-146)
[2022-05-15 05:21] LABS: ALBUMIN 2.7 g/dL (3.2-5.0); BILIRUBIN, TOTAL 0.2 mg/dL (0.0-1.4)
[2022-05-15 06:10] VITALS: BP 117/76; BP 134/78
[2022-05-15 12:09] LABS: ANION GAP 12 (6-22 (CALC)); BUN 14 mg/dL (9-20); BUN/CREATININE RATIO 17 (12-20 (CALC)); CARBON DIOXIDE 27 mmol/l (22-30); CHLORIDE 105 mmol/l (95-108); CREATININE 0.8 mg/dL (0.7-1.3); GFR FOR AFR.AMER. > 60 ML/MIN (>=60 (CALC)); GFR OTHER RACES > 60 ML/MIN (>=60 (CALC)); POTASSIUM 3.9 mmol/l (3.5-5.1); SODIUM 140 mmol/l (137-146)
[2022-05-15 14:39] VITALS: BP 108/71
[2022-05-15 19:10] VITALS: BP 132/83
[2022-05-16 03:15] VITALS: BP 138/80
[2022-05-16 06:25] LABS: HEMATOCRIT 26.2 % (39.0-50.0); HEMOGLOBIN 8.2 g/dl (14.0-18.0); IMMATURE GRANULOCYTES 0.4 % (0.0-5.0); MEAN CELL VOLUME 76.2 fL CALC (80.0-100.0); MEAN CORPUSCULAR HGB 23.8 pG CALC (26.0-32.0); MEAN CORPUSCULAR HGB CONC 31.3 g/dL CAL (32.0-36.0); NEUT# 5.03 thou/uL (1.82-7.42); RED BLOOD COUNT 3.44 mill/uL (4.70-6.10); RED CELL DISTRI WIDTH 14.5 % (11.5-15.5)
[2022-05-16 06:36] VITALS: BP 129/82
[2022-05-16 06:43] LABS: ALBUMIN 2.6 g/dL (3.2-5.0); ALKALINE PHOSPHATASE 133 u/l (38-126); ANION GAP 10 (6-22 (CALC)); BUN 12 mg/dL (9-20); BUN/CREATININE RATIO 16 (12-20 (CALC)); CARBON DIOXIDE 24 mmol/l (22-30); CHLORIDE 106 mmol/l (95-108); CREATININE 0.7 mg/dL (0.7-1.3); GFR FOR AFR.AMER. > 60 ML/MIN (>=60 (CALC)); GFR OTHER RACES > 60 ML/MIN (>=60 (CALC)); SGOT/AST 17 u/l (17-59); SODIUM 136 mmol/l (137-146); TOTAL PROTEIN 5.8 g/dL (6.3-8.2)
[2022-05-16 06:44] LABS: BILIRUBIN, TOTAL 0.1 mg/dL (0.0-1.4)
[2022-05-16 14:03] LABS: C. DIFFICILE TOXIN A&B NEGATIVE (NEGATIVE)
[2022-05-16 14:10] VITALS: BP 123/70
[2022-05-16 18:43] VITALS: BP 121/69
[2022-05-17 03:54] VITALS: BP 134/77
[2022-05-17 07:24] VITALS: BP 132/78
[2022-05-17 11:49] VITALS: BP 142/85
[2022-05-17] MEDS ORDERED: PERCOCET 5/325M1 TAB PO (13:42)
[2022-05-17] MEDS ORDERED: BACTRIM DS1 TAB PO (13:42)
[2022-05-17] MEDS ORDERED: LEVEMIR100 UNIT SC (15:35)
[2022-05-21] MEDS ORDERED: KAPSPARGO SPRIN50 MG (11:35)
[2022-05-21] MEDS ORDERED: SERTRALINE25 MG PO (11:35)
[2022-05-21] MEDS ORDERED: JARDIANCE25 MG (11:35)
== END 2022-05-17 14:43 | disposition home or self-care (01) ==
LOC: ED 13:52 → ED-I 15:50 → ED 16:32 → MS2 16:32
PROVIDERS: Family Medicine; Internal Medicine; Nurse Practitioner; ADMIT Internal Medicine; ATTEND Internal Medicine
DX: L02.213 Cutaneous abscess of chest wall (principal); D64.9 Anemia, unspecified; R19.7 Diarrhea, unspecified; E11.9 Type 2 diabetes mellitus without complications; K70.30 Alcoholic cirrhosis of liver without ascites; F10.20 Alcohol dependence, uncomplicated; Z79.84 Long term (current) use of oral hypoglycemic drugs; Z20.822 Contact with and (suspected) exposure to COVID-19
CPT/HCPCS: G0378; J1650; Q9967